=== PATIENT | male | born 1975 | race Caucasian/White ===

== ENCOUNTER 2018-10-30 18:54 | Emergency (ER) | payer OTHER ==
[~2018-10-30] VITALS: Ht 177.8 cm; Wt 94.8 kg
--- NOTE | 2018-10-30 19:13 | ED.ADGEN ---
Adult General Chief Complaint Chief Complaint ".. I ve had some GI issue.. Diarrhea.. but during PT... the l st mile went okay.. 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 Pt has had multiple trips overseas for investigation of infectious outbreaks and viral pathogens. Recently grew up in [facility] and has not been in our area for spring seasons. Patient denies any specific recent ill contacts. Denies any recent overseas travel.. There is a fat history of multiple myeloma mother coronary artery disease with father at age 50 and a grandfather with VT age 60s. Pt. has not been oversea for approximately one year. Up to date with vaccination- multiple. Review of Systems Review of Systems Constitutional:Complaints of fever or chills [] Eyes: Denies change in visual acuity, redness, or eye pain [] HENT: Denies nasal congestion or sore throat [] Respiratory: complaints of cough , wheezing and shortness of breath [] Cardiovascular: No additional information not addressed in HPI [] GI: Complaints abdominal pain, nausea, vomiting, diarrhea [] : Denies dysuria or hematuria [] Musculoskeletal: Denies back pain or joint pain [] Integument: Denies rash or skin lesions [] Neurologic: Denies headache, focal weakness or sensory changes [] Endocrine: Denies polyuria or polydipsia [] All other systems were reviewed and found to be within normal limits, except as documented in this note. Family History Family History CADz with Parents Current Medications Current Medications Current Medications Medications (Trade) Dose Ordered Sig/Eligio Start Time Stop Time Status Last Admin Dose Admin Acetaminophen (Tylenol) 1,000 mg 1X ONCE 10/30/18 20:00 10/30/18 20:01 DC 10/30/18 20:18 1,000 MG Albuterol Sulfate (Ventolin Hfa Inhaler) 2 puff 1X ONCE 10/30/18 21:30 10/30/18 21:31 DC 10/30/18 21:17 2 PUFF Azithromycin (Zithromax) 500 mg 1X ONCE 10/30/18 23:00 10/30/18 23:01 DC 10/30/18 23:07 500 MG Ceftriaxone Sodium 1 gm/ Sodium Chloride 50 ml @ 100 mls/hr 1X ONCE 10/30/18 23:00 10/30/18 23:29 DC 10/30/18 23:07 100 MLS/HR Ceftriaxone Sodium (Rocephin) 1 gm STK-MED ONCE 10/30/18 23:04 10/30/18 23:05 DC Iohexol (Omnipaque 350 Mg/ml) 100 ml 1X ONCE 10/30/18 22:30 10/30/18 22:31 DC 10/30/18 22:37 100 ML Lactated Ringer's 1,000 ml @ 1,000 mls/hr 1X ONCE 10/30/18 22:15 10/30/18 23:14 DC 10/30/18 23:07 1,000 MLS/HR Prednisone (Prednisone) 50 mg 1X ONCE 10/30/18 20:00 10/30/18 20:01 DC 10/30/18 20:19 50 MG Sodium Chloride 50 ml @ As Directed STK-MED ONCE 10/30/18 23:04 10/30/18 23:05 DC Allergies Allergies Allergies Coded Allergies Type Severity Reaction Last Updated Verified No Known Drug Allergies 10/30/18 No Physical Exam Physical Exam Constitutional: Well developed, well nourished, mild distress, non-toxic appearance. [] HENT: Normocephalic, atraumatic, bilateral external ears normal, oropharynx moist, no oral exudates, nose swollen turbinates and rhinorrhea. Eyes: PERRLA, EOMI, conjunctiva normal, no discharge. [] Neck: Normal range of motion, no tenderness, supple, no stridor. [] Cardiovascular:Heart rate regular rhythm, no murmur [] Lungs & Thorax: Bilateral breath sounds equal with scattered wheezes on auscultation [] Abdomen: Bowel sounds hyperactive, soft, no tenderness, no masses, no pulsatile masses. [] Skin: Warm, dry, no erythema, no rash. [] Back: No tenderness, no CVA tenderness. [] Extremities: No tenderness, no cyanosis, no clubbing, ROM intact, no edema. No cording. Neurologic: Alert and oriented X 3, normal motor function, normal sensory function, no focal deficits noted. [] Psychologic: Affect normal, judgement normal, mood normal. [] Current Patient Data Vital Signs Vital Signs Date Time Temp Pulse Resp B/P (MAP) Pulse Ox O2 Delivery O2 Flow Rate FiO2 10/30/18 23:10 80 18 115/56 (75) 100 Room Air 10/30/18 19:44 98.1 Lab Results Laboratory Tests Test 10/30/18 20:10 10/30/18 20:42 10/30/18 20:44 10/30/18 21:19 White Blood Count 19.5 x10^3/uL (4.0-11.0) H Red Blood Count 5.56 x10^6/uL (4.30-5.70) Hemoglobin 15.7 g/dL (13.0-17.5) Hematocrit 46.6 % (39.0-53.0) Mean Corpuscular Volume 84 fL (79-100) Mean Corpuscular Hemoglobin 28 pg (25-35) Mean Corpuscular Hemoglobin Concent 34 g/dL (31-37) Red Cell Distribution Width 13.9 % (11.5-14.5) Platelet Count 245 x10^3/uL (140-400) Neutrophils (%) (Auto) 86 % (31-73) H Lymphocytes (%) (Auto) 5 % (24-48) L Monocytes (%) (Auto) 9 % (0-9) Eosinophils (%) (Auto) 0 % (0-3) Basophils (%) (Auto) 0 % (0-3) Neutrophils # (Auto) 16.8 x10^3uL (1.8-7.7) H Lymphocytes # (Auto) 1.0 x10^3/uL (1.0-4.8) Monocytes # (Auto) 1.7 x10^3/uL (0.0-1.1) H Eosinophils # (Auto) 0.0 x10^3/uL (0.0-0.7) Basophils # (Auto) 0.1 x10^3/uL (0.0-0.2) Segmented Neutrophils % 84 % (35-66) H Lymphocytes % 9 % (24-48) L Monocytes % 7 % (0-10) Platelet Estimate Adequate (ADEQUATE) Hypochromasia Slight Erythrocyte Sedimentation Rate 1 (0-15) Sodium Level 139 mmol/L (136-145) Potassium Level 4.0 mmol/L (3.5-5.1) Chloride Level 101 mmol/L (98-107) Carbon Dioxide Level 23 mmol/L (21-32) Anion Gap 15 (6-14) H Blood Urea Nitrogen 14 mg/dL (8-26) Creatinine 1.4 mg/dL (0.7-1.3) H Estimated GFR (Cockcroft-Gault) 55.6 Glucose Level 79 mg/dL (70-99) Calcium Level 9.7 mg/dL (8.5-10.1) Magnesium Level 2.8 mg/dL (1.8-2.4) H Total Bilirubin 0.4 mg/dL (0.2-1.0) Direct Bilirubin 0.1 mg/dL (0.0-0.2) Aspartate Amino Transferase (AST) 30 U/L (15-37) Alanine Aminotransferase (ALT) 50 U/L (16-63) Alkaline Phosphatase 74 U/L (46-116) Creatine Kinase 158 U/L (39-308) Troponin I Quantitative < 0.017 ng/mL (0-0.055) DG-[id number]-Type Natriuretic Peptide 33 pg/mL (0-124) Total Protein 8.3 g/dL (6.4-8.2) H Albumin 4.7 g/dL (3.4-5.0) Lipase 152 U/L (73-393) Prothrombin Time 11.5 SEC (9.4-11.4) H Prothrombin Time INR 1.2 (0.9-1.1) H PTT 23 SEC (23-33) D-Dimer (Sarahy) 0.63 mg/L (0.00-0.50) H Influenza Type A (Rapid) Negative (NEGATIVE) Influenza Type B (Rapid) Negative (NEGATIVE) Group A Streptococcus Rapid Negative (NEGATIVE) Urine Collection Type Unknown Urine Color Yellow Urine Clarity Clear Urine pH 6.0 Urine Specific [place] 1.015 Urine Protein 30 mg/dl (NEG-TRACE) Urine Glucose (UA) Neg mg/dL (NEG) Urine Ketones (Stick) Neg mg/dL (NEG) Urine Blood Trace (NEG) Urine Nitrite Neg (NEG) Urine Bilirubin Neg (NEG) Urine Urobilinogen Dipstick 0.2 mg/dL (0.2 mg/dL) Urine Leukocyte Esterase Neg (NEG) Urine RBC 0 /HPF (0-2) Urine WBC 0 /HPF (0-4) Urine Squamous Epithelial Cells Few /LPF Urine Bacteria 0 /HPF (0-FEW) Urine Hyaline Casts Occ /HPF Urine Mucus Slight /LPF EKG EKG EKG sinus 83, Bimodal p waves. No acute STEMI with contralateral changes. [] Radiology/Procedures Radiology/Procedures My interpretation of chest xray shows not acute cardiopulmonary findings. CT Chest shows no acute pulmonary finding or PE. See formal report when available. Course & Med Decision Making Course & Med Decision Making Pertinent Labs and Imaging studies reviewed. (See chart for details) Pt. to Take Bactrim twice a day. Push fluids. No solids or milk products. Allow bowel rest. Use MDI two puffs four times day . Follow up pending cultures and labs with primary. Return if any concerns. [] Final Impression Final Impression 1. Bronchitis 2. Gastroenteritis 3. Leukocytosis 19.5 with Seg 84 4. Elevated Creat. 1.4 5. Elevated D-dimer 0.63 [] Dragon Disclaimer Dragon Disclaimer This electronic medical record was generated, in whole or in part, using a voice recognition dictation system. Discharge Summary Visit Information Final Diagnosis Problems Medical Problems: (1) Bronchitis Status: Acute (2) Gastroenteritis Status: Acute Brief Hospital Course Allergies Allergies Coded Allergies Type Severity Reaction Last Updated Verified No Known Drug Allergies 10/30/18 No Vital Signs Vital Signs Date Time Temp Pulse Resp B/P (MAP) Pulse Ox O2 Delivery O2 Flow Rate FiO2 10/30/18 23:10 80 18 115/56 (75) 100 Room Air 10/30/18 19:44 98.1 Lab Results Laboratory Tests Test 10/30/18 20:10 10/30/18 20:42 10/30/18 20:44 10/30/18 21:19 White Blood Count 19.5 x10^3/uL (4.0-11.0) Red Blood Count 5.56 x10^6/uL (4.30-5.70) Hemoglobin 15.7 g/dL (13.0-17.5) Hematocrit 46.6 % (39.0-53.0) Mean Corpuscular Volume 84 fL (79-100) Mean Corpuscular Hemoglobin 28 pg (25-35) Mean Corpuscular Hemoglobin Concent 34 g/dL (31-37) Red Cell Distribution Width 13.9 % (11.5-14.5) Platelet Count 245 x10^3/uL (140-400) Neutrophils (%) (Auto) 86 % (31-73) Lymphocytes (%) (Auto) 5 % (24-48) Monocytes (%) (Auto) 9 % (0-9) Eosinophils (%) (Auto) 0 % (0-3) Basophils (%) (Auto) 0 % (0-3) Neutrophils # (Auto) 16.8 x10^3uL (1.8-7.7) Lymphocytes # (Auto) 1.0 x10^3/uL (1.0-4.8) Monocytes # (Auto) 1.7 x10^3/uL (0.0-1.1) Eosinophils # (Auto) 0.0 x10^3/uL (0.0-0.7) Basophils # (Auto) 0.1 x10^3/uL (0.0-0.2) Segmented Neutrophils % 84 % (35-66) Lymphocytes % 9 % (24-48) Monocytes % 7 % (0-10) Platelet Estimate Adequate (ADEQUATE) Hypochromasia Slight Erythrocyte Sedimentation Rate 1 (0-15) Sodium Level 139 mmol/L (136-145) Potassium Level 4.0 mmol/L (3.5-5.1) Chloride Level 101 mmol/L (98-107) Carbon Dioxide Level 23 mmol/L (21-32) Anion Gap 15 (6-14) Blood Urea Nitrogen 14 mg/dL (8-26) Creatinine 1.4 mg/dL (0.7-1.3) Estimated GFR (Cockcroft-Gault) 55.6 Glucose Level 79 mg/dL (70-99) Calcium Level 9.7 mg/dL (8.5-10.1) Magnesium Level 2.8 mg/dL (1.8-2.4) Total Bilirubin 0.4 mg/dL (0.2-1.0) Direct Bilirubin 0.1 mg/dL (0.0-0.2) Aspartate Amino Transf (AST/SGOT) 30 U/L (15-37) Alanine Aminotransferase (ALT/SGPT) 50 U/L (16-63) Alkaline Phosphatase 74 U/L (46-116) Creatine Kinase 158 U/L (39-308) Troponin I Quantitative < 0.017 ng/mL (0-0.055) BW-Jsa-Q-Type Natriuretic Peptide 33 pg/mL (0-124) Total Protein 8.3 g/dL (6.4-8.2) Albumin 4.7 g/dL (3.4-5.0) Lipase 152 U/L (73-393) Prothrombin Time 11.5 SEC (9.4-11.4) Prothromb Time International Ratio 1.2 (0.9-1.1) Activated Partial Thromboplast Time 23 SEC (23-33) D-Dimer (Sarahy) 0.63 mg/L (0.00-0.50) Influenza Type A (Rapid) Negative (NEGATIVE) Influenza Type B (Rapid) Negative (NEGATIVE) Group A Streptococcus Rapid Negative (NEGATIVE) Urine Collection Type Unknown Urine Color Yellow Urine Clarity Clear Urine pH 6.0 Urine Specific [place] 1.015 Urine Protein 30 mg/dl (NEG-TRACE) Urine Glucose (UA) Neg mg/dL (NEG) Urine Ketones (Stick) Neg mg/dL (NEG) Urine Blood Trace (NEG) Urine Nitrite Neg (NEG) Urine Bilirubin Neg (NEG) Urine Urobilinogen Dipstick 0.2 mg/dL (0.2 mg/dL) Urine Leukocyte Esterase Neg (NEG) Urine RBC 0 /HPF (0-2) Urine WBC 0 /HPF (0-4) Urine Squamous Epithelial Cells Few /LPF Urine Bacteria 0 /HPF (0-FEW) Urine Hyaline Casts Occ /HPF Urine Mucus Slight /LPF Brief Hospital Course 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 Discharge Information Dischare Medications Current Medications Lactated Ringer's 1,000 ml @ 1,000 mls/hr Q1H IV Last administered on 10/30/18at 20:18; Admin Dose 1,000 MLS/HR; Start 10/30/18 at 19:53; Stop 10/30/18 at 20:52; Status DC Prednisone (Prednisone) 50 mg 1X ONCE PO Last administered on 10/30/18at 20:19; Admin Dose 50 MG; Start 10/30/18 at 20:00; Stop 10/30/18 at 20:01; Status DC Albuterol Sulfate (Ventolin Hfa Inhaler) 2 puff 1X ONCE INH Last administered on 10/30/18at 20:18; Admin Dose 2 PUFF; Start 10/30/18 at 20:00; Stop 10/30/18 at 20:01; Status DC Acetaminophen (Tylenol) 1,000 mg 1X ONCE PO Last administered on 10/30/18at 20:18; Admin Dose 1,000 MG; Start 10/30/18 at 20:00; Stop 10/30/18 at 20:01; St atus DC Albuterol Sulfate (Ventolin Hfa Inhaler) 2 puff 1X ONCE INH Last administered on 10/30/18at 21:17; Admin Dose 2 PUFF; Start 10/30/18 at 21:30; Stop 10/30/18 at 21:31; Status DC Ceftriaxone Sodium 1 gm/ Sodium Chloride 50 ml @ 100 mls/hr 1X ONCE IV Last administered on 10/30/18at 23:07; Admin Dose 100 MLS/HR; Start 10/30/18 at 23:00; Stop 10/30/18 at 23:29; Status DC Azithromycin (Zithromax) 500 mg 1X ONCE PO Last administered on 10/30/18at 23:07; Admin Dose 500 MG; Start 10/30/18 at 23:00; Stop 10/30/18 at 23:01; Status DC Lactated Ringer's 1,000 ml @ 1,000 mls/hr 1X ONCE IV Last administered on 10/30/18at 23:07; Admin Dose 1,000 MLS/HR; Start 10/30/18 at 22:15; Stop 10/30/18 at 23:14; Status DC Iohexol (Omnipaque 350 Mg/ml) 100 ml 1X ONCE IV Last administered on 10/30/18at 22:37; Admin Dose 100 ML; Start 10/30/18 at 22:30; Stop 10/30/18 at 22:31; Status DC Sodium Chloride 50 ml @ As Directed STK-MED ONCE .ROUTE ; Start 10/30/18 at 23:04; Stop 10/30/18 at 23:05; Status DC Ceftriaxone Sodium (Rocephin) 1 gm STK-MED ONCE .ROUTE ; Start 10/30/18 at 23:04; Stop 10/30/18 at 23:05; Status DC Active Scripts Active Pepto-Bismol (Bismuth Subsalicylate) 525 Mg/15 Ml Oral.susp 525 Mg PO QIDPRN PRN Ibuprofen 800 Mg Tablet 800 Mg PO TIDPRN Acetaminophen 500 Mg Tablet 1,000 Mg PO QIDPRN PRN Bactrim Ds Tablet (Sulfamethoxazole/Trimethoprim) 1 Each Tablet 1 Tab PO BID Zofran (Ondansetron Hcl) 8 Mg Tablet 8 Mg PO QIDPRN PRN Hydrocodone-Ibuprofen 7.5-200 (Hydrocodone/Ibuprofen) 1 Each Tablet 1 Tab PO PRN Q6HRS PRN 30 Days Dragon Disclaimer This chart was dictated in whole or in part using Voice Recognition software in a busy, high-work load, and often noisy Emergency Department environment. It may contain unintended and wholly unrecognized errors or omissions. USHA MCKEON MD Oct 30, 2018 19:13
[2018-10-30] MEDS ORDERED: IV RINGERS SOLUTION,LACTATED 1,000 ML IV SCH (19:53)
[2018-10-30] MEDS ORDERED: ACETAMINOPHEN 500 MG TABLET PO ONE (20:00)
[2018-10-30] MEDS ORDERED: ALBUTEROL SULFATE 8GM INHALER. INH ONE ×2 (20:00→21:30)
[2018-10-30] MEDS ORDERED: predniSONE 10 MG TABLET PO ONE (20:00)
[2018-10-30 20:50] LABS: ALBUMIN 4.7 g/dL (3.4-5.0); BASO # 0.1 x10^3/uL (0.0-0.2); BASO % 0 % (0-3); CALCIUM 9.7 mg/dL (8.5-10.1); CREATININE 1.4 mg/dL (0.7-1.3); DIRECT BILIRUBIN 0.1 mg/dL (0.0-0.2); EOS % 0 % (0-3); GFR 55.6; HEMATOCRIT 46.6 % (39.0-53.0); HEMOGLOBIN 15.7 g/dL (13.0-17.5); LYMPH % 5 % (24-48); MAGNESIUM 2.8 mg/dL (1.8-2.4); MEAN CORPUSCULAR HEMOGLOBIN 28 pg (25-35); MEAN CORPUSCULAR HGB CONC 34 g/dL (31-37); MEAN CORPUSCULAR VOLUME 84 fL (79-100); MONO # 1.7 x10^3/uL (0.0-1.1); MONO % 9 % (0-9); NEUT # 16.8 x10^3uL (1.8-7.7); NEUT % 86 % (31-73); PLATELET COUNT 245 x10^3/uL (140-400); RED BLOOD COUNT 5.56 x10^6/uL (4.30-5.70); RED CELL DISTRIBUTION WIDTH 13.9 % (11.5-14.5); TOTAL BILIRUBIN 0.4 mg/dL (0.2-1.0); TOTAL PROTEIN 8.3 g/dL (6.4-8.2); WHITE BLOOD COUNT 19.5 x10^3/uL (4.0-11.0)
[2018-10-30 21:20] LABS: INFLUENZA A PATIENT NEGATIVE (NEGATIVE); INFLUENZA B PATIENT NEGATIVE (NEGATIVE)
--- NOTE | 2018-10-30 21:34 | EKG ---
[address] [address] Test Date: 2018-10-30 Test Time: 20:25:07 Pat Name: DANIEL HART Department: Room: Gender: M Business Affairs Manager: : [id number] Requested By: USHA MCKEON Order Number: [id number] Reading MD: William Cortez Measurements Intervals [place] Rate: 83 P: 31 AK: 152 QRS: 31 QRSD: 98 T: 49 QT: 356 QTc: 419 Interpretive Statements SINUS RHYTHM LEFT ATRIAL ABNORMALITY NONSPECIFIC ST-T WAVE CHANGES. Electronically Signed On 11-04-2018 13:03:16 CDT by William Cortez
[2018-10-30 21:39] LABS: BACTERIA,URINE 0 /HPF (0-FEW); BILIRUBIN,URINE NEG (NEG); CLARITY,URINE CLEAR; COLOR,URINE YELLOW; GLUCOSE,URINE NEG (NEG); HYALINE CASTS, URINE OCC /HPF; NITRITE,URINE NEG (NEG); RBC,URINE 0 /HPF (0-2); SQUAMOUS EPITHELIAL CELL,UR FEW /LPF; UROBILINOGEN,URINE 0.2 mg/dL (0.2 mg/dL); WBC,URINE 0 /HPF (0-4)
[2018-10-30 21:45] LABS: % LYMPHS 9 % (24-48); % MONOS 7 % (0-10); % SEGS 84 % (35-66)
[2018-10-30 21:46] LABS: HYPOCHROMIA SLIGHT; PLT ESTIMATE ADEQUATE (ADEQUATE)
[2018-10-30 22:14] LABS: SEDIMENTATION RATE 1 (0-15)
[2018-10-30] MEDS ORDERED: IV RINGERS SOLUTION,LACTATED 1,000 ML IV ONE (22:15)
[2018-10-30] MEDS ORDERED: IOHEXOL 350 MG/ML 100 ML VIAL. IV ONE (22:30)
[2018-10-30] MEDS ORDERED: AZITHROMYCIN 250 MG TABLET. PO ONE (23:00)
[2018-10-30] MEDS ORDERED: cefTRIAXone SODIUM 1 GM VIAL ONE (23:04)
[2018-10-30] MEDS ORDERED: IV NORMAL SALINE 50ML 50 ML ONE (23:04)
[2018-10-30 23:10] VITALS: BP 115/56
--- NOTE | 2018-10-30 23:37 | RAD ---
CTA Chest with contrast: Clinical History: Dyspnea, elevated d-dimer Shortness of breath. Axial helical images of the chest were obtained after the administration of 100 cc of IV Isovue-370 and timed appropriately for a pulmonary arterial study. Conventional axial reconstruction was performed in addition to coronal, sagittal and bilateral oblique MIP (maximum intensity projection). This study was ordered to detect possible pulmonary embolism. There are no filling defects to suggest pulmonary embolism. The lungs and pleural margins are clear. There is no mediastinal or hilar lymphadenopathy. The thoracic aorta appears normal. Impression: 1. No evidence of pulmonary embolism. 2. No significant findings. PQRS Compliance Statement: One or more of the following individualized dose reduction techniques were utilized for this examination: 1. Automated exposure control 2. Adjustment of the mA and/or kV according to patient size 3. Use of iterative reconstruction technique Electronically signed by: Elio Hendrix III, MD (10/30/2018 11:34 PM) [facility]
[2018-10-30] MEDS ORDERED: ONDA8TAB9 PO (23:57)
[2018-10-30] MEDS ORDERED: HYDR-1179 PO (23:57)
[2018-10-30] MEDS ORDERED: SULF1TAB24 PO (23:57)
[2018-10-30] MEDS ORDERED: IBUP800T19 PO (23:59)
[2018-10-30] MEDS ORDERED: BISM525O8 PO (23:59)
[2018-10-30] MEDS ORDERED: ACET500T68 PO (23:59)
--- NOTE | 2018-10-31 07:57 | RAD ---
CHEST PA LATERAL History: Dyspnea, cough x 2 days Comparison: None. Findings: 2 views of the chest are submitted. There is no infiltrate, pneumothorax, or effusion. The cardiac silhouette is within normal limits in size. The trachea is in the midline. No acute osseous abnormality is identified. Impression: 1. There is no evidence of acute cardiopulmonary disease. Electronically signed by: Mohinder Blackwood MD (10/31/2018 7:54 AM) [facility]
== END 2018-10-31 00:05 | disposition home or self-care (01) ==
LOC: ER 18:54
DX: J40 Bronchitis, not specified as acute or chronic (principal); K52.9 Noninfective gastroenteritis and colitis, unspecified; D72.829 Elevated white blood cell count, unspecified; R79.1 Abnormal coagulation profile; R74.8 Abnormal levels of other serum enzymes
CPT/HCPCS: 36415; 71046; 71275; 80048; 80076; 81001; 82550; 83690; 83735; 83880; 84443; 84484; 85007; 85025; 85379; 85610; 85651; 85730; 87040; 87070; 87804; 87880; 93005; 94640; 96361; 96365; 99285; J0456; J0696; J7120; J7512; J7613; Q9967